=== PATIENT | male | born 1960 | race Caucasian/White ===

== ENCOUNTER 2017-08-27 06:42 | Emergency (ER) | payer OTHER ==
[~2017-08-27] VITALS: Ht 180.3 cm; Wt 77.2 kg
[~2017-08-27 06:42] MED LIST: DOXAZOSIN MESYLA1 MG PO; GLUCOPHAGE850 MG PO; Glucotrol PO; HUMULIN N100 UNIT/2 SC; HYDRALAZINE HCL50 MG PO; LANTUS 3 M100 UNITS1 SC; METOPROLOL TART25 MG PO; NAPROSYN500 MG PO; NOHOMEMEDS; NORCO 5/3251 TABLET PO; Pravachol PO
[2017-08-27] MEDS ORDERED: PERCOCET 5/31 TABLET PO (09:37)
[2017-08-27] MEDS ORDERED: NAPROSYN500 MG PO (09:38)
[2017-08-27 10:06] VITALS: BP 155/94
== END 2017-08-27 10:21 | disposition home or self-care (01) ==
LOC: EME 06:42
DX: M79.604 Pain in right leg (principal); M25.551 Pain in right hip; I10 Essential (primary) hypertension; F41.9 Anxiety disorder, unspecified; Z88.8 Allergy status to other drugs, medicaments and biological substances
CPT/HCPCS: 73502; 73552; 73564; 93971; 99281; 99284

== ENCOUNTER 2018-01-27 15:43 | Emergency (ER) | payer OTHER ==
[~2018-01-27] VITALS: Ht 180.3 cm; Wt 77.2 kg
[~2018-01-27 15:43] MED LIST changes: +PERCOCET 5/31 TABLET PO
[2018-01-27] MEDS ORDERED: PAIN & FEVER500 MG PO (16:30)
[2018-01-27] MEDS ORDERED: NAPROXEN500 MG PO (16:30)
[2018-01-27 17:16] VITALS: BP 145/98
== END 2018-01-27 17:39 | disposition home or self-care (01) ==
LOC: EME 15:43
DX: M70.71 Other bursitis of hip, right hip (principal); I10 Essential (primary) hypertension; Z88.8 Allergy status to other drugs, medicaments and biological substances
CPT/HCPCS: 99281; 99284